=== PATIENT | male | born 1980 | race Caucasian/White ===

== ENCOUNTER 2024-03-13 19:53 | Emergency (ER) | payer SELFPAY ==
[2024-03-13] VITALS (7 sets, daily range): BP systolic 111–151; BP diastolic 11–111; PULSE 116–132; TEMP 37.4; O2SAT 95–96; BMI 31.2
--- NOTE | 2024-03-13 20:11 | ECG_ITS ---
The [facility] Test Date: 2024-03-13 Pat Name: KELLY PINON Department: Room: - Gender: Male Ssrs Report Developer: : 1980 Requested By: [id number] Order Number: [id number] Reading MD: ARASELI HAM Measurements Intervals [place] Rate: 129 P: 68 MI: 158 QRS: 0 QRSD: 90 T: 73 QT: 298 QTc: 374 Interpretive Statements 1120 Sinus tachycardia 1570 with occasional ventricular premature complexes Low voltage across the precordium 9150 abnormal ECG No previous ECG available for comparison Electronically Signed On 03-14-2024 18:39:40 EDT by ARASELI HAM
--- NOTE | 2024-03-13 20:11 | CT_ITS ---
The [address] [address] Patient Name: KELLY PINON MRN: [id number] date: 1980 Sex: M Assigned Patient Location: ER Current Patient Location: ED.MAIN Accession/Order Number: [id number] Exam Date: 03/13/2024 21:20 Report Date: 03/13/2024 20:51 At the request of: AUGUSTUS COLBERT Procedure: CT head/brain wo con HEAD CT WITHOUT CONTRAST, 03/13/2024 9:20 PM EDT: CLINICAL HISTORY: Headache, brain bleed 5 years ago. COMPARISON: None available. TECHNIQUE: Noncontrast CT imaging was performed from skull base to the vertex. Sagittal and coronal reconstructions performed. Dose reduction techniques were achieved by using automated exposure control and/or adjustment of mA and/or kV according to patient size and/or use of iterative reconstruction technique. FINDINGS: Ventricular and sulcal size is normal for the patient's age. No areas of abnormal attenuation are identified. There is no mass effect, midline shift or intracranial hemorrhage. There is no evidence of acute infarction. There are no extra axial fluid collections. Visualized paranasal sinuses, mastoid air cells and orbital contents are unremarkable. CT/CT head/brain wo con IMPRESSION: No acute intracranial abnormality. Electronically authenticated by: DESIRE SWENSON Date: 03/13/2024 20:51
--- NOTE | 2024-03-13 20:12 | ED_ITS ---
HPI HPI - General Adult General Chief complaint: Seizure Stated complaint: HEADACHE DIZZINESS Time Seen by Provider: 03/13/24 20:05 Source: patient Mode of arrival: walk-in Limitations: no limitations History of Present Illness HPI narrative: 43-year-old male presents to the emergency department for headache. He has had this for 5 days and its in the middle part of his head. He states it feels like when he had a brain bleed 5 years ago following trauma. He did not require surgery. He had been on Keppra subsequently but stopped taking it and never followed up and has been off of that for years. His significant other describes a trembling or shaking issue with his right leg and to a lesser degree the right arm which is intermittent and last for few seconds and that started this week. No fever or new trauma. Related Data Home Medications ?Medication ?Instructions ?Recorded ?Confirmed No Known Home Medications 03/13/24 03/13/24 Previous Rx's ?Medication ?Instructions ?Recorded worpltesby-luhkdsygjzoei-hyvdlahd 1 cap PO Q6H PRN pain 5 days #20 03/13/24 50 mg-300 mg-40 mg capsule caps (Fioricet) Allergies Allergy/AdvReac Type Severity Reaction Status Date / Time cefaclor [From [facility]] Allergy Unknown Verified 03/13/24 19:58 Penicillins Allergy Unknown Verified 03/13/24 19:58 Opioid HPI Opioid Management Most Recent Opioid Data: Last Pain Scale 3 03/13/24 22:14 Last ED Pain Assessment 03/13/24 22:14 Ur Phencyclidine Scrn Negative (NEGATIVE) 03/13/24 21:00 Review of Systems ROS Narrative A ten point review of systems is negative except as noted above. Exam Narrative Exam Narrative: Nurses note and vital signs reviewed and patient is not hypoxic. General: The patient appears in no apparent distress. Skin: Warm, dry, no pallor noted. There is no rash noted. Head: Normocephalic, atraumatic Eye: Normal conjunctiva, no drainage, EOMI. PERRL Ears, Nose, Mouth, and Throat: oral mucosa is moist. Nares patent. Cardiovascular: Regular Rate and Rhythm, tachycardic Respiratory: Patient is in no distress, no accessory muscle use, lungs are clear to auscultation, no wheezing, rales or rhonchi Back: non-tender GI: Soft and nontender Musculoskeletal: The patient has no evidence of calf tenderness, no pitting edema, symmetrical pulses noted bilaterally Neurological: A&O x4, normal speech, prefers to keep his eyes closed, moves all 4 extremities well, no tremors Psychiatric: Cooperative Constitutional Vital Signs, click to edit/add: Last Vital Signs Temp 99.4 F 03/13/24 19:58 Pulse 116 H 03/13/24 22:21 Resp 18 03/13/24 22:21 BP 120/69 03/13/24 22:00 Pulse Ox 96 03/13/24 22:21 O2 Del Method Room Air 03/13/24 22:21 Course Vital Signs Vital signs: Vital Signs Temperature 99.4 F 03/13/24 19:58 Pulse Rate 132 H 03/13/24 19:58 Respiratory Rate 20 03/13/24 19:58 Blood Pressure 151/111 H 03/13/24 19:58 Pulse Oximetry 95 03/13/24 19:58 Oxygen Delivery Method Room Air 03/13/24 19:58 Temperature 99.4 F 03/13/24 19:58 Pulse Rate 116 H 03/13/24 22:21 Respiratory Rate 18 03/13/24 22:21 Blood Pressure 120/69 03/13/24 22:00 Pulse Oximetry 96 03/13/24 22:21 Oxygen Delivery Method Room Air 03/13/24 22:21 Medical Decision Making MDM Narrative Medical decision making narrative: CT brain is negative. No acute findings present. Blood work is nonspecific. He was tachycardic upon arrival and his heart rate has come down with IV fluids. He was given IV morphine and his head feels improved. He is referred to neurology for appropriate follow-up regarding the intermittent twitching that he had in his right leg. Treatment diagnosis and follow-up were discussed thoroughly with the patient and his significant other. Lab Data Lab results reviewed: Yes I reviewed the patient's lab results Labs: Lab Results 03/13/24 03/13/24 Range/Units 20:21 21:00 WBC 10.0 (4.0-11.0) 10^3/uL RBC 4.39 L (4.70-6.10) 10^6/uL Hgb 14.7 (14.0-18.0) g/dL Hct 42.1 (42.0-54.0) % MCV 95.9 H (80.0-94.0) fL MCH 33.5 (25.9-34.0) pg MCHC 34.9 (29.9-35.2) g/dL RDW 12.2 (11.0-15.0) % Plt Count 233 (150-450) 10^3/uL MPV 8.8 L (9.5-13.5) fL Neut % (Auto) 47.1 (43.0-75.0) % Lymph % (Auto) 44.1 (20.5-60.0) % [place] % (Auto) 6.2 (1.7-12.0) % Eos % (Auto) 1.3 (0.9-7.0) % Baso % (Auto) 0.9 (0.2-2.0) % Neut # (Auto) 4.7 (1.4-6.5) 10^3/uL Lymph # (Auto) 4.4 H (1.2-3.8) 10^3/uL [place] # (Auto) 0.6 (0.3-0.8) 10^3/uL Eos # (Auto) 0.1 (0.0-0.7) 10^3/uL Baso # (Auto) 0.1 (0.0-0.1) 10^3/uL Abs Immat Gran (auto) 0.04 H (0.00-0.03) 10^3/uL Imm/Tot Granulo (auto) 0.4 (0.0-0.5) % Sodium 140 (136-145) mmol/L Potassium 3.3 L (3.5-5.1) mmol/L Chloride 104 (98-107) mmol/L Carbon Dioxide 22.2 (21.0-32.0) mmol/L Anion Gap 17.1 BUN 17.0 (7.0-18.0) mg/dL Creatinine 1.30 (0.70-1.30) mg/dL Est GFR ( Amer) >60 (>=60) Est GFR (Non-Af Amer) 60 (>=60) BUN/Creatinine Ratio 13.1 Glucose 132 H (74-106) mg/dL Calcium 8.6 (8.5-10.1) mg/dL Urine Color Yellow (YELLOW) Urine Clarity Clear (CLEAR) Urine pH 5.5 (5.0-9.0) Ur Specific [place] >=1.030 A (1.005-1.025) Urine Protein Negative (NEG/TRACE) mg/dL Urine Glucose (UA) Negative (NEGATIVE) mg/dL Urine Ketones Trace A (NEGATIVE) mg/dL Urine Occult Blood Small A (NEGATIVE) Urine Nitrite Negative (NEGATIVE) Urine Bilirubin Negative (NEGATIVE) Urine Urobilinogen 0.2 (0.2-1.0) EU/dL Ur Leukocyte Esterase Negative (NEGATIVE) Urine RBC 0-2 (0-2) #/HPF Urine WBC None seen (NONE SEEN) #/HPF Ur Squamous Epith Cells None seen (NONE/RARE) #/LPF Urine Crystals None seen (None Seen) #/HPF Urine Bacteria None seen (NONE SEEN) #/HPF Urine Casts Seen A (NONE SEEN) #/LPF Hyaline Casts Few Fine Granular Casts Rare Urine Mucus None seen (NONE SEEN) Urine Opiates Screen Negative (NEGATIVE) Ur Buprenorphine Scrn Negative (NEGATIVE) Ur Oxycodone Screen Negative (NEGATIVE) Urine Methadone Screen Negative (NEGATIVE) Ur Barbiturates Screen Negative (NEGATIVE) U Tricyclic Antidepress Negative (NEGATIVE) Ur Phencyclidine Scrn Negative (NEGATIVE) Ur Amphetamines Screen Negative (NEGATIVE) U Methamphetamines Scrn Negative (NEGATIVE) U Benzodiazepines Scrn Negative (NEGATIVE) Urine Cocaine Screen Negative (NEGATIVE) U Cannabinoids Screen Negative (NEGATIVE) Ethanol Quant 98 mg/dL Imaging Data CT scan - head: Radiologist's impression: ITS Impressions Head CT 03/13/24 20:11 IMPRESSION: No acute intracranial abnormality. Electronically authenticated by: DESIRE SWENSON Date: 03/13/2024 20:51 ECG Data Attestation: I personally reviewed and interpreted this ECG as follows: (EKG on my interpretation shows sinus tachycardia with a rate of 129. A PVC is present.) Discharge Plan Discharge Stand Alone Forms: Portal Instructions Chief Complaint: Seizure Clinical Impression: Headache Patient Disposition: Home, Self-Care Time of Disposition Decision: 22:38 Condition: Good Mode of Transportation: Private Vehicle Prescriptions / Home Meds: New hyxatvnuvz-xubguzribzzvw-errw [Fioricet] 50-300-40 mg capsule 1 cap PO Q6H PRN (Reason: pain) 5 Days Qty: 20 0RF No Action No Known Home Medications Print Language: Luxembourger Instructions: Acute Headache (ED) Additional Instructions: Follow-up with [facility] [phone] Dr Potter Referrals: Physician,Non-Staff, [Primary Care Provider] - 1 week
[2024-03-13 20:32] LABS: Basophils Absolute Auto 0.1 10^3/uL (0.0-0.1); Basophils Percent Auto 0.9 % (0.2-2.0); Eosinophils Absolute Auto 0.1 10^3/uL (0.0-0.7); Eosinophils Percent Auto 1.3 % (0.9-7.0); Hematocrit 42.1 % (42.0-54.0); Hemoglobin 14.7 g/dL (14.0-18.0); Immature Granulocytes Abs Auto 0.04 10^3/uL (0.00-0.03); Immature Granulocytes Pct Auto 0.4 % (0.0-0.5); Lymphocytes Absolute Auto 4.4 10^3/uL (1.2-3.8); Lymphocytes Percent Auto 44.1 % (20.5-60.0); Mean Corpuscular HGB Conc 34.9 g/dL (29.9-35.2); Mean Corpuscular Hemoglobin 33.5 pg (25.9-34.0); Mean Corpuscular Volume 95.9 fL (80.0-94.0); Mean Platelet Volume 8.8 fL (9.5-13.5); Monocytes Absolute Auto 0.6 10^3/uL (0.3-0.8); Monocytes Percent Auto 6.2 % (1.7-12.0); Neutrophils Absolute Auto 4.7 10^3/uL (1.4-6.5); Neutrophils Percent Auto 47.1 % (43.0-75.0); Platelet Count 233 10^3/uL (150-450); Red Blood Count 4.39 10^6/uL (4.70-6.10); Red Cell Distribution Width 12.2 % (11.0-15.0)
[2024-03-13 20:43] LABS: Anion Gap 17.1; BUN Creatinine Ratio 13.1; Calcium 8.6 mg/dL (8.5-10.1); Carbon Dioxide 22.2 mmol/L (21.0-32.0); Chloride 104 mmol/L (98-107); Estimated GFR (African America >60 (>=60); Estimated GFR (Non-African Ame 60 (>=60); Ethanol 98 mg/dL; Glucose 132 mg/dL (74-106); Potassium 3.3 mmol/L (3.5-5.1); Sodium 140 mmol/L (136-145)
[2024-03-13 21:15] LABS: Bilirubin Urine NEGATIVE (NEGATIVE); Blood Urine SMALL (NEGATIVE); Clarity Urine CLEAR (CLEAR); Color Urine YELLOW (YELLOW); Glucose Urine UA NEGATIVE (NEGATIVE); Ketones Urine TRACE mg/dL (NEGATIVE); Leukocyte Esterase Urine NEGATIVE (NEGATIVE); Nitrite Urine NEGATIVE (NEGATIVE); Protein Urine NEGATIVE (NEG/TRACE); Specific Gravity Urine >=1.030 (1.005-1.025); Urobilinogen Urine 0.2 EU/dL (0.2-1.0); pH Urine 5.5 (5.0-9.0)
[2024-03-13] MEDS: 0.9 % SODIUM CHLORIDE 1,000 ML 1000 ML IV (21:19)
[2024-03-13 21:21] LABS: Amphetamine Screen Urine NEGATIVE (NEGATIVE); Barbiturates Screen Urine NEGATIVE (NEGATIVE); Benzodiazepines Screen Urine NEGATIVE (NEGATIVE); Buprenorphine Screen Urine NEGATIVE (NEGATIVE); Cannabinoid Screen Urine NEGATIVE (NEGATIVE); Cocaine Screen Urine NEGATIVE (NEGATIVE); Methadone Screen Urine NEGATIVE (NEGATIVE); Methamphetamines Screen Urine NEGATIVE (NEGATIVE); Opiate Screen Urine NEGATIVE (NEGATIVE); Oxycodone Screen Urine NEGATIVE (NEGATIVE); Phencyclidine Screen Urine NEGATIVE (NEGATIVE); Tricyclic Antidepressant Urine NEGATIVE (NEGATIVE)
[2024-03-13 21:23] LABS: Bacteria Urine NONE SEEN #/HPF (NONE SEEN); Cast Seen? SEEN #/LPF (NONE SEEN); Crystals Seen? None Seen #/HPF (None Seen); Fine Granular Casts Urine RARE; Hyaline Casts Urine FEW; Mucus Urine NONE SEEN (NONE SEEN); RBC Urine 0-2 #/HPF (0-2); Squamous Epithelial Cell Urine NONE SEEN #/LPF (NONE/RARE); WBC Urine NONE SEEN #/HPF (NONE SEEN)
[2024-03-13] MEDS: MORPHINE SULFATE 4 MG/ML VIAL IV (21:32)
== END 2024-03-13 22:50 | disposition home or self-care (01) ==
PROVIDERS: Emergency Provider Emergency Medicine
DX: R51.9 Headache, unspecified (principal)
CPT/HCPCS: 36415; 70450; 80048; 80307; 80320; 81001; 85025; 93005; 96374; 99285